=== PATIENT | male | born 1950 | race Caucasian/White ===

== ENCOUNTER → 2016-12-31 | Outpatient (CLI) | payer OTHER ==
--- NOTE | 2016-12-31 10:50 | RAD ---
Ventilation/perfusion lung scan, 12/31/2016: History: Dyspnea with exertion The ventilation study was performed utilizing 24 mCi of xenon-133. Activity in the lungs is mildly heterogeneous, likely related to the patient's size. There is fairly good washout of the xenon from the lungs. Perfusion imaging was performed following IV injection of 5.5 mCi of technetium 99m MAA. A similar pattern of activity is present in the lungs. No segmental or significant unmatched perfusion defects are seen. IMPRESSION: There are no VQ findings to suggest pulmonary emboli. .
--- NOTE | 2016-12-31 10:53 | RAD ---
Chest, 2 views, 12/31/2016: History: Dyspnea The heart size and pulmonary vascularity are normal. There is a tiny right parahilar nodule. No pulmonary infiltrates are seen. There is no evidence of pleural fluid. Scattered spurs are present in the spine. IMPRESSION: Tiny nonspecific right parahilar pulmonary nodule. Comparison with previous chest radiographs if available would be most useful in establishing stability. If none are available, CT scanning or radiographic follow-up is suggested.
== END | disposition home or self-care (01) ==
LOC: NM 08:02
PROVIDERS: ATTEND Internal Medicine
DX: R06.00 Dyspnea, unspecified (principal)
CPT/HCPCS: 71020; 78582; 96374; A9540; A9558